=== PATIENT | female | born 1980 ===

== ENCOUNTER 2017-01-07 12:36 | Emergency (ER) | payer MEDICAID, OTHER ==
[~2017-01-07] VITALS: Ht 167.6 cm; Wt 69.1 kg
[2017-01-07 12:39] VITALS: BP 105/68; PULSE 75; RESP 20; O2SAT 99
--- NOTE | 2017-01-07 13:23 | ED.REPORT ---
HPI- Female Date of Service January 07, 2017 ED Provider: Vane Barillas MD Patient is a 36 year old female who presents to the ED complaining of abdominal pain onset yesterday. Associated symptoms include bloating, fever, irregular vaginal bleeding onset 2 days ago and painful bowel movements. She denies dizziness or syncopal events. Patient reports that she was seen 4 days ago at [facility] and diagnosed with an ectopic and has since had increasing symptoms. Prior to arrival to the ED, the patient took Hydrocodone at 1141. Nursing Notes Stated Complaint: CRAMPING Chief Complaint: Female Abdominal Pain Nursing Notes Reviewed: Yes Allergies: Coded Allergies: No Known Allergies (Unverified , 10/15/15) No Active Prescriptions or Reported Meds General Time Seen by MD: 13:20 Chief Complaint Abdominal pain... (LLQ) Hx Obtained From: Patient Unable to Obtain Hx: Mental status Arrived By: Walk-in Sudden in Onset?: Yes Onset Occurred: 1 week ago Symptom Duration: Since onset Location: : LLQ Associated with: Reports: Fever, Nausea Recent Healthcare: No recent doctor visit, No recent hospitalization Similar Sx Previous: No Past Medical History Past Medical History Healthy Ectopic, methotrexate December, Past Surgical History Reports: Tonsillectomy Reports: Tubal ligation Smoking History Never Smoker Social History Alcohol Use: Denies alcohol use Drug Use: Denies drug use Other Social History: Good social support, From out of town Ambulatory Status Independent Review of Systems Review of Systems Note: painful bowel movements Constitutional: Reports: Fever GI: Reports: Abdominal pain Female: Reports: Vaginal bleeding - abnl Musculoskeletal: Denies: Back pain Neurologic: Denies: Dizziness, Syncope Complete sys rev & neg: except as marked. Physical Exam Initial Vital Signs Vital Signs (First) Date Time Temp Pulse Resp B/P Pulse Ox O2 Delivery O2 Flow Rate FiO2 01/07/17 12:39 36.4 75 20 105/68 99 Room Air Initial VS: Reviewed Female Genitourinary: Exam deferred General/Constitutional: Awake, Alert, No acute distress Appearance / Presentation: Positive: Pale well profused Respiratory / Chest: Atraumatic, Breath sounds NL, Breath sounds = bilat, No respiratory distress Cardiovascular: Heart rate NL, Regular rhythm, Heart sounds NL Abdomen: Atraumatic, Soft, No guarding, No rebound Tenderness/Guarding/Rebound: Positive: Tender RLQ..., Tender suprapubic Organomegaly / Mass / Hernia: Positive: Hernia is incarcerated Skin: Atraumatic, Color NL, No rash mildly diaphoretic Head / Eyes: Atraumatic, Normocephalic, PERRL, EOMI Upper Extremity / MS: Atraumatic, Full range of motion Lower Extremity / Pelvis / MS: Atraumatic, Full range of motion Neurologic: Oriented X3, Speech NL, No motor deficits, No sensory deficits Psychiatric: Affect NL, Mood NL Interpretation & Diagnostics Lab Results Interpretation Result Diagram: 01/07/17 1355 01/07/17 1355 Test 01/07/17 13:55 White Blood Count 5.7th/mm3 (3.8-10.1) Red Blood Count 3.58mil/mm3 (3.90-5.20) Hemoglobin 10.5g/dL (12.0-15.6) Hematocrit 31.6% (35.0-46.0) Mean Corpuscular Volume 88.3fL (81-100) Mean Corpuscular Hemoglobin 29.3pg (27.0-35.0) Mean Corpuscular Hemoglobin Concent 33.2% (32.0-37.0) Red Cell Distribution Width 13.5% (12.3-15.4) Platelet Count 252bil/L (150-400) Sodium Level 136mEq/L (134-144) Potassium Level 4.0mEq/L (3.5-5.2) Chloride Level 101mEq/L (97-108) Carbon Dioxide Level 23mmol/L (18-29) Blood Urea Nitrogen 8mg/dL (6-20) Creatinine 0.54mg/dL (0.57-1.00) Estimat Glomerular Filtration Rate 182mL/min (>59) Glucose Level 105mg/dL (60-99) Calcium Level 8.5mg/dL (8.5-10.1) Total Bilirubin 0.3mg/dL (0.0-1.2) Aspartate Amino Transf (AST/SGOT) 37U/L (0-50) Alanine Aminotransferase (ALT/SGPT) 41U/L (0-32) Alkaline Phosphatase 51U/L (25-150) Total Protein 6.6g/dL (6.4-8.4) Albumin 3.7g/dL (3.4-5.0) HCG Beta Subunit 886.0mIU/mL Lab Results Interpretation: Verbal report Ultrasound results; left ectopic ; there is a round thick wall structure with surrounding complex fluid consistent with an ectopic in the left adnexa. There is a minimal amount less than 50 mL of hemorrhagic type fluid in the pelvis. The uterus is empty. PROCEDURE: US PELVIC SONOGRAM + TRANSVAGINAL SONOGRAM INDICATIONS: ectopic treated with methotrexate on 01/03 TECHNIQUE: Real-time scanning was performed of the pelvic organs, with image documentation. Additional endovaginal scanning was necessary due to incomplete visualization of the adnexal and endometrial structures by transabdominal scanning. COMPARISON: [facility], , PELVIC COMPLETE, 01/01/2017, 22:31. FINDINGS: (orthogonal measurements) Uterus size: 8.91 cm, 4.91 cm, 7.34 cm Endometrium thickness: 1.35 cm Right ovary size: 1.88 cm, 3.05 cm, 1.82 cm Left ovary size: 5.47 cm, 2.99 cm, 6.66 cm Transabdominal scanning: Limited scanning through the kidneys shows no hydronephrosis. No pathologic free abdominal or pelvic fluid. Endovaginal scanning: Uterus: Uterus is normal in size and appearance. Endometrium is within normal physiologic limits. No IUP identified. Ovaries: Normal right ovary. There is a thick walled, complex mass within the left adnexa measuring 2 x 2 by 1.7 cm with central sonolucency. There is no definite internal pole or yolk sac seen. There is a complex adjacent mass seen also within the left adnexa measuring roughly 5.2 x 2.6 cm which is irregular in appearance suggesting probable evolving pelvic hematoma. Small amount of hemorrhagic free fluid also is present within the pelvis. IMPRESSION: 1. No intrauterine seen. 2. Abnormal appearance within the left adnexa with sequela of sonographic findings suspicious for left ectopic with adjacent evolving pelvic hematoma as well as small amount of free hemorrhagic fluid noted. Recommend clinical correlation and followup. Dr. Barillas personally given results at 1430 hrs. 01/07/2017. Dictated by: J Luis Love RRMelba Interpreted: Ellie Colby MD on 01/07/2017 at 15:44 Transcribed by: LIZETH on 01/07/2017 at 15:53 Re-Eval/Medical Decision Med Decision/Clinical Course 36-year-old woman who presents with bleeding and cramping after methotrexate to treat a known left-sided ectopic diagnosed on 01/03. HCG was 700 01/01. 1075 01/09 today down to 886 Patient was given a prescription for Elverta from [facility] but chose not to fill it. I encouraged her to go ahead and filled us to treat the cramping pain she is currently having. She had been scheduled to have a repeat hCG drawn tomorrow, as we did today we will have her skip tomorrow's hCG. She was to have another one done on Saturday we will ask her to do this and to keep her appointment with Dr. Mauro at [facility] on Saturday at 3. Phone call to Dr. Prasad's office was made letting her know of the events of the last few days. Patient will be given a copy of this note to share with Dr. Prasad Consultation : Referral / Consult Name: Andrea Arriaga MD Consulted With: On-call physician (OBGYN) Call Returned at: 15:16 Waiter/Waitress Third Class: Agrees with eval, Agrees with plan Note: Consult with Dr. Arriaga, who says if the Hgc is dropping , the patient can be discharged. Counseled Regarding: Diagnosis, Lab results Discharge & Departure Shift Change Sign-Out Patient Care Transferred: Yes Discussed Complaint(s): Yes Imaging Studies: Ordered, not yet done Impression: Primary Impression: Ectopic Ruled Out: Ruptured ectopic , Hemorrhagic shock Disposition: Home Discharge Condition All VS Reviewed: Yes Condition: Stable Patient Instructions: Ectopic (ED) Additional Instructions: It appears that your hormone levels are decreasing appropriately. The methotrexate seems to be working appropriately. It is normal to have some bleeding spotting cramping after methotrexate for an ectopic . You do not need to have your blood drawn tomorrow (we did it today). You do need to have the hCG drawn on Saturday and keep your appointment Saturday with Dr. Mauro at [facility]. Please give her the ER note from today. If you find that you are bleeding more, have worsening pain, feel like you are going to pass out, dizzy when you stand up, noticing a rapid heart rate, you need to return to the emergency room I wish you very best Referrals: [facility] (PCP) Care Transferred to: Dr. Reyes Care Transferred at: 15:15 Hammad Attestation Portions of this note were transcribed by Samanta Nickerson. I, Dr. Barillas personally performed the history, physical exam and medical decision-making; I reviewed and confirmed the accuracy of the information in the transcribed note. Signed by: Hammad Elliott, 01/07/17 and 1517 copies to: [facility] Shawna L MD January 07, 2017 13:23 Diamante Nickerson January 07, 2017 13:43
[2017-01-07] MEDS ORDERED: HYDROmorphone 1 mg/mL Inj IVPUSH ONE (13:50)
[2017-01-07 14:07] LABS: Mean Corpuscular Hemoglobin 29.3 pg (27.0-35.0); Mean Corpuscular Volume 88.3 fL (81-100)
--- NOTE | 2017-01-07 15:53 | DRSVH ---
PROCEDURE: US PELVIC SONOGRAM + TRANSVAGINAL SONOGRAM INDICATIONS: ectopic treated with methotrexate on 01/03 TECHNIQUE: Real-time scanning was performed of the pelvic organs, with image documentation. Additional endovagi nal scanning was necessary due to incomplete visualization of the adnexal and endometrial structures by transabdominal scanning. COMPARISON: [facility], [place], PELVIC COMPLETE, 01/01/2017, 22:31. FINDINGS: (orthogonal measurements) Uterus size: 8.91 cm, 4.91 cm, 7.34 cm Endometrium thickness: 1.35 cm Right ovary size: 1.88 cm, 3.05 cm, 1.82 cm Left ovary size: 5.47 cm, 2.99 cm, 6.66 cm Transabdominal scanning: Limited scanning through the kidneys shows no hydronephrosis. No pathologi c free abdominal or pelvic fluid. Endovaginal scanning: Uterus: Uterus is normal in size and appearance. Endometrium is within normal physiologic limits. No IUP identified. Ovaries: Normal right ovary. There is a thick walled, complex mass within the left adnexa measuring 2 x 2 by 1.7 cm with central sonolucency. There is no definite internal pole or yolk sac seen. There is a complex adjacent mass seen also within the left adnexa measuring roughly 5.2 x 2.6 cm wh ich is irregular in appearance suggesting probable evolving pelvic hematoma. Small amount of hemorrh agic free fluid also is present within the pelvis. IMPRESSION: 1. No intrauterine seen. 2. Abnormal appearance within the left adnexa with sequela of sonographic findings suspicious for lef t ectopic with adjacent evolving pelvic hematoma as well as small amount of free hemorrhagi c fluid noted. Recommend clinical correlation and followup. Dr. Barillas personally given results at 1430 hrs. 01/07/2017. Dictated by: J Luis Love [facility] Interpreted: Ellie Colby MD on 01/07/2017 at 15:44 Transcribed by: LIZETH on 01/07/2017 at 15:53 Approved by: Ellie Colby M.D. on 01/07/2017 at 22:32
[2017-01-07 17:11] VITALS: BP 93/63; PULSE 89; RESP 16; O2SAT 98
== END 2017-01-07 17:12 | disposition home or self-care (01) ==
LOC: SED 12:36
DX: O00.90 Unspecified ectopic pregnancy without intrauterine pregnancy (principal); Z3A.00 Weeks of gestation of pregnancy not specified; Z98.51 Tubal ligation status
CPT/HCPCS: 36415; 76830; 76856; 80053; 84702; 85027; 96374; 99285; J1170